=== PATIENT | male | born 1965 | race Caucasian/White ===

== ENCOUNTER 2025-08-14 09:18 | Outpatient (CLI) | payer OTHER ==
--- NOTE | 2025-08-14 11:06 | RADIOLOGY REPORT ---
PROCEDURE: MR MRI LUMBAR SPINE INDICATION: OTHER LOW BACK PAIN Exam Date: 08/14/2025 09:42 AM COMPARISON: None TECHNIQUE: MRI lumbar spine without intravenous contrast. FINDINGS: Multilevel disc degeneration. Alignment: No spondylolisthesis identified. Vertebrae: Susceptibility artifact corresponding to anterior spinal fixation hardware and disc spacer material at L4, L5 and S1. Conus: Conus medullaris terminates at the T12-L1 level. Following axial levels detailed below: T12-L1: The disc configuration is normal. No spinal canal or neural foraminal stenosis. The facet joints are normal. L1-2: The disc configuration is normal. No spinal canal or neural foraminal stenosis. Facet arthrosis. L2-3: Disc desiccation and 1.35 mm disc bulge. Mild spinal canal stenosis. Moderate right subarticular zone stenosis. Mild right foraminal stenosis. Facet arthrosis. L3-4: Disc desiccation and 4.55 mm disc bulge. Moderate right and mild left subarticular zone stenosis. Mild bilateral foraminal stenosis. Facet arthrosis. L4-5: Disc desiccation and 3.05 mm disc bulge. Mild disc height loss. Mild bilateral subarticular zone stenosis. Moderate right and mild left foraminal stenosis. Facet arthrosis. L5-S1: Disc desiccation. Mild disc height loss. No spinal canal stenosis. Mild left foraminal stenosis. Facet arthrosis. IMPRESSION: Multilevel disc degeneration. Multilevel subarticular zone stenosis, most pronounced and moderate at L3-L4. Multilevel foraminal stenosis, most pronounced and moderate at L4-L5. Mild spinal canal stenosis at L2-L3 level.
== END 2025-08-14 23:59 | disposition home or self-care (01) ==
LOC: MRI02 09:18
PROVIDERS: ATTEND Physical Medicine & Rehabilitation
DX: M51.360 Other intervertebral disc degeneration, lumbar region with discogenic back pain only (principal); R20.9 Unspecified disturbances of skin sensation; M79.12 Myalgia of auxiliary muscles, head and neck; M47.897 Other spondylosis, lumbosacral region; M43.26 Fusion of spine, lumbar region; M48.061 Spinal stenosis, lumbar region without neurogenic claudication; G89.4 Chronic pain syndrome; M54.2 Cervicalgia
CPT/HCPCS: 72148